=== PATIENT | male | born 1980 | race Caucasian/White ===

== ENCOUNTER 2017-03-12 00:57 | Emergency (ER) | payer OTHER ==
[~2017-03-12 00:57] MED LIST: BACTRIM DS TABL1 TA1 PO; CATAPRES-TTS-20.2 MG PO; CIPRO HC OTIC S10 ML OT; HYDROXYZINE HCL50 MG PO; IBUPROFEN800 MG; IBUPROFEN800 MG PO; KEFLEX500 M1 PO; KLONOPIN0.5 MG PO; MOTRIN600 M2 PO; NO MEDICATIONS; OMEPRAZOLE40 M1 PO; PHENERGAN25 M1 PO; PRAVACHOL PO; PRAVASTATIN SOD20 MG; PREDNISONE; PREDNISONE PO; VICODIN 5-3001 EACH; VISTARIL PO
[2017-03-12] MEDS ORDERED: BISOPROLOL-HCT1 EACH (01:04)
== END 2017-03-12 01:51 | disposition home or self-care (01) ==
LOC: SED 00:57
DX: J02.9 Acute pharyngitis, unspecified (principal); I10 Essential (primary) hypertension; E78.5 Hyperlipidemia, unspecified; F41.9 Anxiety disorder, unspecified
CPT/HCPCS: 87651; 99283